=== PATIENT | male | born 1945 | race Caucasian/White ===

== ENCOUNTER 2019-12-17 17:52 | Observation (INO) | payer OTHER ==
[~2019-12-17 17:52] MED LIST: Iopamidol-370 76% 500 ML 1 ML ONE
[2019-12-17 18:24] LABS: #Eosinphils 0.2 thou/uL (0.0-0.7); #Lymphocytes 1.1 thou/uL (1.20-3.40); #Monocytes 0.5 thou/uL (0.11-0.59); #Neutrophils 3.4 thou/uL (1.40-6.50); %Basophils 0.2 % (0.0-1.0); %Eosinophils 3.4 % (0.0-10.0); %Lymphocytes 21.3 % (21.0-51.0); %Monocytes 8.9 % (0.0-10.0); %Neutrophils 66.3 % (42.0-75.0); Hemoglobin 8.7 g/dL (14.0-18.0); Mean Corpuscular HGB CONC 31.5 g/dL (32.0-36.0); Mean Corpuscular Hemoglobin 26.7 pg (27.0-31.0); Mean Corpuscular Volume 84.8 fL (78.0-98.0); Mean Platelet Volume 9.4 fL (7.4-10.4); Platelet Count 196 thou/uL (130-400); RBC Distribution Width 15.7 % (11.5-14.5); Red Blood Cell (RBC) Count 3.27 mill/uL (4.70-6.10); White Blood Cell (WBC) Count 5.1 thou/uL (4.8-10.8)
--- NOTE | 2019-12-17 18:40 | CT ---
CT OF BRAIN PERFORMED WITHOUT CONTRAST ENHANCEMENT: 12/17/19 HISTORY: Stroke-like symptoms. History of previous CVA in 2012. COMPARISON: None. Generalized ventricular and sulcal prominence. There is encephalomalacia change related to a large ol d right MCA infarct. There is no hemorrhage or mass effect. Mastoid air cells are clear. There is a r etention cyst in the left anterior ethmoid air cells near the frontal sinus. IMPRESSION: Old right MCA infarct. No acute intracranial abnormalities. Findings telephoned to Dr. Samuel at 1835 hours. POS: [facility] [place]
[2019-12-17 18:47] LABS: ALT (SGPT) 10 U/L (8-55); AST (SGOT) 10 U/L (5-34); Albumin 3.7 g/dL (3.4-4.8); Alkaline Phosphatase 137 U/L (40-110); Anion Gap 12 mmol/L (10-20); BUN (Urea Nitrogen) 16 mg/dL (8.4-25.7); Bilirubin, Total 0.6 mg/dL (0.2-1.2); Calc. Creatinine Clearance 0 mL/min (70-130); Calcium 8.6 mg/dL (7.8-10.44); Carbon Dioxide 21 mmol/L (23-31); Chloride 118 mmol/L (98-107); Estimated GFR-MDRD Greater than 90; Globulin 2.3 g/dL (2.4-3.5); Glucose 142 mg/dL (83-110); Potassium 4.1 mmol/L (3.5-5.1); Sodium 147 mmol/L (136-145)
--- NOTE | 2019-12-17 19:31 | CT ---
CT ANGIO OF HEAD AND NECK PERFORMED WITH INTRAVENOUS CONTRAST ENHANCEMENT WITH 3D RECONSTRUCTIONS: 12/17/19 HISTORY: Stroke-like symptoms, left sided weakness, history of previous right CVA. Lung apices show parenchymal scarring within the right upper lobed on axial images, it had almost a m ass-like appearance but on the coronal and sagittal views is more plate-like and appears to be relat ed to more of a chronic scarring process. There is calcified lymph nodes in this region. This is prob ably the sequela of old granulomatous disease. There is emphysematous lung changes seen. No cavitary change is noted. Thyroid nodules are identified. Better investigated with thyroid ultrasound on a nonemergent basis. T he vocal cord region is unremarkable. Parapharyngeal spaces are clear. No significant jugular chain a denopathy. Angiographic portion of this examination yielded a satisfactory study. The left common car otid artery originates from the aortic arch. There is a calcified plaque at the origin making it diff icult to assess for the degree of stenosis although appears to be some mild narrowing. There is also prominent calcified plaque within the proximal internal carotid artery on the left with approximately 50% narrowing by NASCET criteria. External carotid artery shows calcified plaque but no significant stenosis. On the right side, the right common carotid artery occludes shortly beyond its origin. There is no fl ow within the internal carotid artery There is some reconstitution of flow within some of the criminal research specialist al carotid branches. The right vertebral artery is small. It makes minimal contribution to the basilar artery. CT ANGIO OF HEAD PERFORMED WITH CONTRAST ENHANCEMENT: There is a patent [place] of [place]. The flow to the right anterior and middle cerebral arteries origi nates from the left internal carotid artery. There is moderate calcified plaque formation in the ca vernous portion of the internal carotid artery. There is patent anterior communicator. The right and left middle cerebral arteries and their branches appear to fill fairly symmetrically, particularly co nsidering the degree of encephalomalacia change related to old right MCA infarct. The basilar artery is small. Posterior cerebral arteries are unremarkable. IMPRESSION: 1. 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 There is also emphysematous l remi change. 2. Complete occlusion of the right common carotid artery shortly beyond its origin. No flow with in the right internal carotid artery. The right external carotid artery becomes reconstituted via col laterals. 3. Dominant left vertebral. 4. The intracranial circulation arises basically entirely from the left internal carotid artery. The left common carotid artery shows a mild to moderate degree of stenosis near the origin. Difficul t to assess due to calcification. There is approximately 50% narrowing of the origin of the left inte rnal carotid artery and there is some moderate calcified plaque formation of the cavernous portion of the left internal carotid. Anterior circulation derives entirely from the left sided circulation. 5. Findings telephoned to Dr. Samuel at 1858 hours. POS: [facility]
[2019-12-17] MEDS ORDERED: Aspirin Chewable 81 MG TAB ONE (20:52)
[2019-12-17 21:46] LABS: Troponin I 0.015 ng/mL (< 0.028)
[2019-12-17] MEDS ORDERED: Acetaminophen 650 MG Suppository PR PRN (22:29)
[2019-12-17] MEDS ORDERED: Acetaminophen 325 MG TAB PO PRN (22:29)
--- NOTE | 2019-12-17 23:16 | PDOC.HHP ---
Hospitalist HPI - History of Present Illness Difficulty eating History of Present Illness: Mr. Bauer is a 74 year old man brought in from longterm due to sudden difficulty eating earlier today. Unclear what time but states he suddenly noticed trouble dribbling while eating/drinking. He noticed he had slight numbness to the left side of his mouth. Patient reports noted slightly worse left sided weakness at around 9am this morning. He has residual left sided deficits following previous CVA but noted it was worse from baseline. Thinks he may have had some slight increase weakness since last night. Patient became more alarmed with his difficulty chewing and holding food in his mouth which is what brought him in. He states he knows he has complete occlusion of one of his carotid arteries with some blockage, at least 50%, on the other side. States he has been undergoing routine monitoring and that surgery has not been recommended. He was told it may be in the future if the blockage becomes severe. His symptoms have almost fully resolved, except for the residual deficits form the prior CVA. ED Course: Attempted transfer to [facility] unsuccessful. Brain CT: Old right MCA infarct. No acute intracranial abnormalities. CTA head/neck: 1. 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 There is also emphysematous lung change. 2. Complete occlusion of the right common carotid artery shortly beyond its origin. No flow with in the right internal carotid artery. The right external carotid artery becomes reconstituted via collaterals. 3. Dominant left vertebral. 4. The intracranial circulation arises basically entirely from the left internal carotid artery. The left common carotid artery shows a mild to moderate degree of stenosis near the origin. Difficult to assess due to calcification. There is approximately 50% narrowing of the origin of the left internal carotid artery and there is some moderate calcified plaque formation of the cavernous portion of the left internal carotid. Anterior circulation derives entirely from the left sided circulation. Na+ 147, Potassium 4.1, AG 12, BUN 16, Creat 0.80, GFR >90. Glucose 142, Ca+ 8.6, Protein 6, Albumin 3., Total bili 0.6. WCC 5.1, Hgb 8.7, Hematocrit 27.7, Trop normal. BNP 45.3. MCV 84.8, Platelets 196. He was given 324 mg of aspirin. Hospitalist ROS - Review of Systems Constitutional: reports: malaise. denies: fever, chills, sweats, weakness, other Eyes: reports: redness (long standing) Respiratory: denies: cough, dry, shortness of breath, hemoptysis, SOB with excertion, pleuritic pain, sputum, wheezing, other Cardiovascular: denies: chest pain, palpitations, orthopnea, paroxysmal noc. dyspnea, edema, light headedness, other Gastrointestinal: reports: diarrhea (Reports very soft stools for last few days) . denies: nausea, vomiting, abdominal pain, constipation, melena, hematochezia , other Genitourinary: denies: dysuria, frequency, incontinence, hematuria, retention, other Musculoskeletal: denies: neck pain, shoulder pain, arm pain, back pain, hand pain, leg pain, foot pain, other Skin: denies: rash, lesions, sameera, bruising, other Neurological: reports: weakness (left sided, slightly worse from baseline today , but now back to baseline), numbness (chronic involving left side from prior stroke), other (weakness/numbness to left side of mouth). denies: incoordination, change in speech, confusion, seizures Hospitalist History - Past Medical History Cardiac: reports: CAD, HTN, [place], Hyperlipidemia Pulmonary: reports: COPD, emphysema, Other (History of lung cancer) HOSPICE BEREAVEMENT COORDINATOR: reports: Other (Parkinson's) Gastrointestinal: reports: Irritable bowel disease Heme/Onc: reports: Anemia NOS, Cancer (history of lung cancer, basal cell carcinoma) Endocrine: reports: Diabetes Dermatology: reports: Basal cell - Past Surgical History Past Surgical History: reports: Other (Left upper lobectomy) - Social History Smoking Status: Former smoker Alcohol: reports: None Drugs: reports: none Living Situation: Other (inmate) - Exam General Appearance: NAD General - other findings: Appears frail, thin Eye: PERRL ENT: normocephalic atraumatic, no oropharyngeal lesions, dry oral mucosa Neck: supple, no lymphadenopathy Heart: RRR Respiratory: CTAB, normal chest expansion, no tachypnea Respiratory - other findings: decreased breath sounds at bases Gastrointestinal: soft, non-tender, non-distended, no guarding, no rigidity Extremities: no edema Neurological - other findings: left sided numbness Musculoskeletal: normal tone, no muscle wasting Psychiatric: normal affect, normal behavior, A&O x 3 Hospitalist Results - Labs Result Diagrams: 12/17/19 18:15 12/17/19 18:15 Lab results: WBC 5.1 thou/uL (4.8-10.8) 12/17/19 18:15 Hgb 8.7 g/dL (14.0-18.0) L 12/17/19 18:15 Hct 27.7 % (42.0-52.0) L 12/17/19 18:15 MCV 84.8 fL (78.0-98.0) 12/17/19 18:15 Plt Count 196 thou/uL (130-400) 12/17/19 18:15 Neutrophils % 66.3 % (42.0-75.0) 12/17/19 18:15 Sodium 147 mmol/L (136-145) H 12/17/19 18:15 Potassium 4.1 mmol/L (3.5-5.1) 12/17/19 18:15 Chloride 118 mmol/L (98-107) H 12/17/19 18:15 Carbon Dioxide 21 mmol/L (23-31) L 12/17/19 18:15 BUN 16 mg/dL (8.4-25.7) 12/17/19 18:15 Creatinine 0.80 mg/dL (0.7-1.3) 12/17/19 18:15 Glucose 142 mg/dL (83-110) H 12/17/19 18:15 Calcium 8.6 mg/dL (7.8-10.44) 12/17/19 18:15 Total Bilirubin 0.6 mg/dL (0.2-1.2) 12/17/19 18:15 AST 10 U/L (5-34) 12/17/19 18:15 ALT 10 U/L (8-55) 12/17/19 18:15 Alkaline Phosphatase 137 U/L (40-110) H 12/17/19 18:15 Troponin I 0.015 ng/mL (< 0.028) 12/17/19 21:15 B-Natriuretic Peptide 45.3 pg/mL (0-100) 12/17/19 18:15 Serum Total Protein 6.0 g/dL (5.8-8.1) 12/17/19 18:15 Albumin 3.7 g/dL (3.4-4.8) 12/17/19 18:15 Hospitalist H&P A/P - Problem (1) TIA (transient ischemic attack) Code(s): G45.9 - TRANSIENT CEREBRAL ISCHEMIC ATTACK, UNSPECIFIED Status: Acute (2) History of CVA (cerebrovascular accident) Code(s): Z86.73 - PRSNL HX OF TIA (TIA), AND CEREB INFRC W/O RESID DEFICITS Status: Acute (3) Right carotid artery occlusion Code(s): I65.21 - OCCLUSION AND STENOSIS OF RIGHT CAROTID ARTERY Status: Chronic (4) Left carotid artery stenosis Code(s): I65.22 - OCCLUSION AND STENOSIS OF LEFT CAROTID ARTERY Status: Chronic (5) COPD (chronic obstructive pulmonary disease) Status: Chronic (6) Hypertension Code(s): I10 - ESSENTIAL (PRIMARY) HYPERTENSION Status: Chronic (7) Diabetes mellitus Code(s): E11.9 - TYPE 2 DIABETES MELLITUS WITHOUT COMPLICATIONS Status: Chronic (8) History of lung cancer Code(s): Z85.118 - PERSONAL HISTORY OF MALIGNANT NEOPLASM OF BRONCHUS AND LUNG Status: Chronic (9) Seizure disorder Code(s): G40.909 - EPILEPSY, UNSP, NOT INTRACTABLE, WITHOUT STATUS EPILEPTICUS Status: Chronic (10) Parkinson disease Code(s): G20 - PARKINSON'S DISEASE Status: Chronic - Plan Plan: Cardiac monitoring. Neuro consult. Echo, unsure when it was last done. MRI brain. Consider vascular surgery, though patient would benefit from transfer to [facility] given all his care has been done there. Check keppra level. Monitor glucose, ISS Monitor BP. Duo nebs prn. Speech eval given risk for aspiration. PT/OT. DVT prophylaxis with mechanical SCDs. GI Prophylaxis with Famotidine. CODE STATUS: FULL
[2019-12-17] MEDS ORDERED: Dextrose 50% Abboject 50 ML SYRINGE SLOW IVP PRN (23:53)
[2019-12-17] MEDS ORDERED: Dextrose 5% in Water 1,000 ML IV PRN (23:53)
[2019-12-18] MEDS ORDERED: PROVENTIL INHALER 6.7 G (200 INHALATIONS) INH PRN (01:47)
[2019-12-18] MEDS ORDERED: Carbidopa/Levodopa 25-250 mg Tablet PO SCH (02:00)
[2019-12-18] MEDS ORDERED: Carvedilol 3.125 MG TAB PO SCH (02:00)
[2019-12-18] MEDS ORDERED: Amantadine HCl 100 mg Capsule PO SCH (02:00)
[2019-12-18 03:43] VITALS: BMI 19.9
[2019-12-18 05:22] LABS: #Eosinphils 0.2 thou/uL (0.0-0.7); #Lymphocytes 1.3 thou/uL (1.20-3.40); #Monocytes 0.4 thou/uL (0.11-0.59); #Neutrophils 2.5 thou/uL (1.40-6.50); %Basophils 0.8 % (0.0-1.0); %Eosinophils 4.8 % (0.0-10.0); %Lymphocytes 29.5 % (21.0-51.0); %Monocytes 8.9 % (0.0-10.0); %Neutrophils 55.9 % (42.0-75.0); Hemoglobin 8.1 g/dL (14.0-18.0); Mean Corpuscular HGB CONC 30.5 g/dL (32.0-36.0); Mean Corpuscular Hemoglobin 25.7 pg (27.0-31.0); Mean Corpuscular Volume 84.3 fL (78.0-98.0); Mean Platelet Volume 9.5 fL (7.4-10.4); Platelet Count 191 thou/uL (130-400); RBC Distribution Width 15.7 % (11.5-14.5); Red Blood Cell (RBC) Count 3.14 mill/uL (4.70-6.10); White Blood Cell (WBC) Count 4.4 thou/uL (4.8-10.8)
[2019-12-18 05:29] LABS: Hemoglobin A1c 5.5 % (4.0-6.0)
[2019-12-18 05:46] LABS: Anion Gap 9 mmol/L (10-20); BUN (Urea Nitrogen) 15 mg/dL (8.4-25.7); Calc. Creatinine Clearance 69 mL/min (70-130); Calcium 8.2 mg/dL (7.8-10.44); Carbon Dioxide 23 mmol/L (23-31); Chloride 118 mmol/L (98-107); Estimated GFR-MDRD Greater than 90; Glucose 96 mg/dL (83-110); Potassium 3.7 mmol/L (3.5-5.1); Sodium 146 mmol/L (136-145)
[2019-12-18] MEDS: Ipratropium Bromide 2.5 ml Neb NEB SCH ×3 (06:56→18:26)
[2019-12-18] MEDS: Mometasone 100 MCG HFA INHALER INH SCH ×2 (06:57→18:30)
[2019-12-18] MEDS ORDERED: TIOTROPIUM INH SCH (09:00)
[2019-12-18] MEDS ORDERED: Non-Formulary Item 1 EACH (Omeprazole [Omeprazole] 20 MG) PO SCH (09:00)
[2019-12-18] MEDS ORDERED: Cyanocobalamin 1000 MCG/ML VIAL IM SCH (09:00)
[2019-12-18] MEDS ORDERED: Aspirin 81 mg Enteric Coated Tablet PO SCH (09:00)
[2019-12-18] MEDS: Famotidine/PF 20 mg/2ml Vial SLOW IVP SCH (09:07)
[2019-12-18] MEDS: Clopidogrel Bisulfate 75 MG TAB PO SCH (09:08)
[2019-12-18] MEDS: Furosemide 20 MG TAB PO SCH (09:08)
[2019-12-18] MEDS: Ferrous Sulfate 325 MG TAB PO SCH ×3 (09:08→21:56)
[2019-12-18] MEDS: Amantadine HCl 100 mg Capsule PO SCH ×2 (09:08→21:56)
[2019-12-18] MEDS: levETIRAcetam 500 MG TAB PO SCH (09:08)
[2019-12-18] MEDS: Docusate 100 MG CAP PO SCH ×2 (09:08→21:56)
[2019-12-18] MEDS: Carbidopa/Levodopa 25-250 mg Tablet PO SCH ×3 (09:08→21:56)
[2019-12-18] MEDS: Terazosin HCl 5 MG CAP PO SCH (09:08)
[2019-12-18] MEDS: Carvedilol 3.125 MG TAB PO SCH ×2 (09:09→21:56)
[2019-12-18] MEDS: Lisinopril 20 MG TAB PO SCH (09:09)
[2019-12-18] MEDS ORDERED: Acetaminophen 650 MG Suppository PR PRN (09:26)
[2019-12-18] MEDS ORDERED: Acetaminophen 325 MG TAB PO PRN (09:26)
[2019-12-18] MEDS ORDERED: Dextrose 5% in Water 1,000 ML IV PRN ×2 (09:27→16:04)
[2019-12-18] MEDS ORDERED: Dextrose 50% Abboject 50 ML SYRINGE SLOW IVP PRN ×2 (09:28→16:04)
[2019-12-18] MEDS: Aspirin 81 mg Enteric Coated Tablet PO SCH (11:28)
[2019-12-18] MEDS ORDERED: Artificial Tears 18 DROP/0.9 ML EA EYE PRN (14:23)
--- NOTE | 2019-12-18 14:29 | PDOC.HOSPP ---
- Subjective Subjective: Follow up on CVA symptoms. Residual left-sided deficits a baseline. Subjective worsening of deficits and difficulty evening. I find the patient sitting upright , breathing well on room air. He is currently eating without difficulties. I do not appreciate significant left-sided deficits. Patient with known carotid stenosis who has been recommended to high risk for surgical intervention in the past. Neurology consultation requested. - Objective Vital Signs & Weight: Vital Signs (12 hours) Temp Pulse Resp BP BP Pulse Ox 12/18/19 13:40 64 16 12/18/19 11:19 97.7 F 64 16 127/48 L 96 12/18/19 09:09 150/74 H 12/18/19 07:33 97.5 F L 63 18 155/61 H 98 12/18/19 06:57 69 12 12/18/19 06:56 69 12 12/18/19 03:55 98 F 69 16 158/54 H 98 Weight Weight 130 lb 14.4 oz I&O: 12/17/19 12/18/19 12/19/19 06:59 06:59 06:59 Intake Total 650 395 Balance 650 395 Result Diagrams: 12/18/19 04:43 12/18/19 04:43 Additional Labs: Accuchecks 12/18/19 12/18/19 12/17/19 11:21 06:14 18:05 POC Glucose 228 H 110 130 H Radiology Reviewed by me: Yes Hospitalist ROS - Review of Systems All other systems reviewed; all pertinent +/- noted in HPI/Subj - Medication Medications: Active Medications Generic Name Dose Route Start Last Admin Trade Name Freq PRN Reason Stop Dose Admin Amantadine HCl 100 mg 12/18/19 09:00 12/18/19 09:08 Symmetrel PO 100 mg BID RENATA Administration Aspirin 81 mg 12/18/19 09:00 12/18/19 11:28 Ecotrin PO 81 mg DAILY RENATA Administration Carbidopa/Levodopa 1 tab 12/18/19 09:00 12/18/19 09:08 Sinemet 25-250 PO 1 tab TID RENATA Administration Carvedilol 3.125 mg 12/18/19 09:00 12/18/19 09:09 Coreg PO 3.125 mg BID RENATA Administration Clopidogrel Bisulfate 75 mg 12/18/19 09:00 12/18/19 09:08 Plavix PO 75 mg DAILY RENATA Administration Docusate Sodium 100 mg 12/18/19 09:00 12/18/19 09:08 Colace PO 100 mg BID RENATA Administration Famotidine 20 mg 12/18/19 09:00 12/18/19 09:07 Pepcid SLOW IVP 20 mg Q12HR RENATA Administration Ferrous Sulfate 325 mg 12/18/19 09:00 12/18/19 09:08 Feosol PO 325 mg TID RENATA Administration Furosemide 20 mg 12/18/19 09:00 12/18/19 09:08 Lasix PO 20 mg DAILY RENATA Administration Ipratropium [place] 2.5 ml 12/18/19 06:00 12/18/19 13:40 Atrovent NEB 2.5 ml Q6HR RENATA Administration Levetiracetam 500 mg 12/18/19 09:00 12/18/19 09:08 Keppra PO 500 mg DAILY RENATA Administration Lisinopril 20 mg 12/18/19 09:00 12/18/19 09:09 Zestril PO 20 mg DAILY RENATA Administration Mometasone Furoate 1 puff 12/18/19 06:30 12/18/19 06:57 Asmanex Hfa 100 Mcg INH 1 puff BID-RT RENATA Administration Pantoprazole Sodium 40 mg 12/18/19 09:00 12/18/19 09:08 Protonix PO 40 mg DAILY RENATA Administration Terazosin HCl 5 mg 12/18/19 09:00 12/18/19 09:08 Hytrin PO 5 mg DAILY RENATA Administration - Exam General Appearance: NAD, awake alert Eye: anicteric sclera ENT: normocephalic atraumatic, moist mucosa Neck: supple, symmetric, no lymphadenopathy Heart: no murmur, no gallops, no rubs Respiratory: CTAB, no wheezes, no rales, no ronchi Gastrointestinal: soft, non-tender, non-distended, normal bowel sounds Extremities: no cyanosis, no edema Skin: no rashes Neurological: cranial nerve grossly intact, no focal deficits Musculoskeletal: generalized weakness Psychiatric: A&O x 3 Hosp A/P (1) History of CVA (cerebrovascular accident) Code(s): Z86.73 - PRSNL HX OF TIA (TIA), AND CEREB INFRC W/O RESID DEFICITS Status: Acute (2) TIA (transient ischemic attack) Code(s): G45.9 - TRANSIENT CEREBRAL ISCHEMIC ATTACK, UNSPECIFIED Status: Acute (3) COPD (chronic obstructive pulmonary disease) Status: Chronic (4) Diabetes mellitus Code(s): E11.9 - TYPE 2 DIABETES MELLITUS WITHOUT COMPLICATIONS Status: Chronic (5) History of lung cancer Code(s): Z85.118 - PERSONAL HISTORY OF MALIGNANT NEOPLASM OF BRONCHUS AND LUNG Status: Chronic (6) Hypertension Code(s): I10 - ESSENTIAL (PRIMARY) HYPERTENSION Status: Chronic (7) Left carotid artery stenosis Code(s): I65.22 - OCCLUSION AND STENOSIS OF LEFT CAROTID ARTERY Status: Chronic (8) Parkinson disease Code(s): G20 - PARKINSON'S DISEASE Status: Chronic (9) Right carotid artery occlusion Code(s): I65.21 - OCCLUSION AND STENOSIS OF RIGHT CAROTID ARTERY Status: Chronic (10) Seizure disorder Code(s): G40.909 - EPILEPSY, UNSP, NOT INTRACTABLE, WITHOUT STATUS EPILEPTICUS Status: Chronic - Plan Plan: medical unit telemetry - stroke unit neurology consultation, recommendations appreciated MRI brain CTA head and neck echocardiogram blood pressure control metabolic workup has been benign continue other home medications is able physical therapy consultation, evaluation and treatment occupational Therapy consultation, evaluation treatment speech therapy consultation, evaluation and treatment G.I. prophylaxis DVT prophylaxis
[2019-12-18] MEDS ORDERED: HumaLOG 300 UNITS/3 ML VIAL SC PRN ×2 (16:04)
--- NOTE | 2019-12-18 16:40 | MRI ---
EXAM: MRI Brain WO Con PROVIDED CLINICAL HISTORY: TIA. Patient states he feels the same as when he had a previous stroke. COMPARISON: Noncontrast CT head on 12/17/2019 FINDINGS: There is an area of encephalomalacia and gliosis involving the right posterior temporal and frontopar ietal lobes with associated gliosis. Increased FLAIR and T2-weighted signal intensity is seen in the periventricular and subcortical white matter which is nonspecific but likely reflective of modera te chronic small vessel ischemic changes. There is no evidence of restricted diffusion to suggest an acute infarction. The septum pellucidum and third ventricle are in the midline. Ventricular system is normal in size, s hape, and position. Mild cerebral volume loss is present. There is increased T2-weighted signal intensity seen within the right internal carotid artery compati ble with occlusion noted on recent CTA examination. The right vertebral artery flow-void is very small in caliber, this is also noted on recent CTA exam. Minimal scattered mucosal thickening is seen in the bilateral ethmoidal air cells, left frontal sinus , and each sphenoid sinus. The orbits and remainder of the skull base have a normal MRI appearance. IMPRESSION: 1. No acute intracranial abnormalities demonstrated. 2. Encephalomalacia and gliosis in the right cerebral hemisphere in the distribution of the right mid dle cerebral artery likely attributable to remote area of infarction. 3. Chronic small vessel ischemic changes and cerebral volume loss. 4. Occlusion of the right internal carotid artery. 3. Scattered mild sinus disease.
[2019-12-18] MEDS ORDERED: Atorvastatin Calcium 40 MG TAB PO SCH ×2 (21:00)
--- NOTE | 2019-12-18 21:12 | CON ---
DATE OF CONSULTATION: 12/18/2019 CHIEF COMPLAINT: Left-sided weakness. HISTORY OF PRESENT ILLNESS: The patient is a 74-year-old man with Parkinson disease since 2011. He had hemorrhagic CVA in 2012 with residual left-sided weakness. He developed numbness on the left side along with worsening of the weakness. He could not chew food on the left side and he has had seizures for several number of years. He has been on Keppra for 8 years. Last seizure was 4 years ago. The patient developed left-sided weakness and numbness, which worsened, and therefore, he was brought to the hospital. At this time, he is being going through his workup. SOCIAL HISTORY: He is a former smoker. Does not drink alcohol. No drug use. He is an inmate at the [facility]. FAMILY HISTORY: His grandmothers of both sides had few strokes. He has 2 children. His daughter is 48 and son is 50, and they do not live nearby. His parents did not have strokes. PAST MEDICAL HISTORY: Positive for; 1. Coronary artery disease. 2. Hypertension. 3. [place]. 4. Hyperlipidemia. 5. COPD. 6. Emphysema. 7. Parkinson disease. 8. Irritable bowel syndrome. 9. History of lung cancer, basal cell carcinoma. 10. Diabetes. 11. Hemorrhagic CVA in the past. 12. Seizure disorder. PAST SURGICAL HISTORY: Left upper lobectomy for lung cancer. REVIEW OF SYSTEMS: PULMONARY: Negative for shortness of breath or cough. GI: Negative for nausea, vomiting, or diarrhea. NEUROLOGICAL: Positive for left-sided weakness and numbness. DERMATOLOGIC: Negative for rash. ENT: Negative for any throat problems or ear problems. OPHTHALMOLOGIC: Negative for vision issues. GENITOURINARY: Negative for urinary infection. LABORATORY DATA: His current laboratory workup; white count 4.4, hemoglobin 8.1, hematocrit 26.5, platelet count 191. Chemistry; sodium 146, potassium 3.7, chloride 118, bicarb 23, BUN 15, creatinine 0.76, glucose 96. Hemoglobin A1c 5.5. Levetiracetam 7.8. IMAGING DATA: His brain MRI was completed. MRI of the brain showed no acute intracranial abnormalities. He has encephalomalacia and gliosis of right cerebral hemisphere in the distribution of right MCA artery, likely due to old infarct, and he has chronic small vessel ischemic changes. PHYSICAL EXAMINATION: VITAL SIGNS: Temperature 97.5, pulse 66, blood pressure 136/58, respiratory rate 16, O2 sats 97%. GENERAL APPEARANCE: Thin-built man, who seems to be having difficulty with his speech, mostly hypophonia. CHEST: Clear vesicular breathing. CARDIOVASCULAR: S1, S2 heard. No murmurs. ABDOMEN: Soft. NEUROLOGICAL: Higher intellectual functions normal. Orientation to time, place, and person. Appropriate conversation. Cranial nerves 2 through 12, normal extraocular movements. Decreased sensation of left side of the face. Normal hearing. Pupils are 2 mm, reactive to light. Normal elevation of palate. Tongue midline, and he did have mild left facial asymmetry. Motor examination; bulk normal, tone normal, and strength was 5/5 on the right side, and in the left upper extremity, his strength was 5/5. Left lower extremity strength was 4/5. Muscle groups tested in iliopsoas, hamstrings, quadriceps, ankle dorsiflexion, plantar flexion, deltoid, biceps, triceps, wrist extension and flexion, finger extension and flexion. Sensory examination diminished in the left arm and leg and face. Cerebellar; normal [id number], [id number]. IMPRESSION AND PLAN: The patient is a 74-year-old man with a prior right middle cerebral artery stroke hemorrhagic stroke per the patient in 2011. He also has seizure disorder plus Parkinson disease. He comes in with left-sided numbness and worsening of weakness. At this time, his MRI does not show an acute infarct. He does have carotid artery disease as reported and noted in the CT angiography report, which I reviewed as well. On the CTA, he has old changes, complete occlusion of the right common carotid artery and right ICA, and right ECA becomes reconstituted via collaterals. He does have 50% narrowing of the origin of left ICA and moderate plaque in the cavernous portion of the internal carotid artery as well. His current examination shows left-sided numbness and weakness, which was mild. This is likely secondary to other metabolic factors such as hypernatremia and anemia plus hyperglycemia, all of which can make his pre-existing weakness worsen. He reports that his carotid artery disease has been monitored for a long time. At this time, the pending investigation is echocardiogram. For stroke prophylaxis, please make sure that the patient is on aspirin plus statin and he can follow up with his neurologist. Job ID: [id number]
[2019-12-19] MEDS: Famotidine/PF 20 mg/2ml Vial SLOW IVP SCH ×2 (00:08→09:24)
[2019-12-19] MEDS: Ipratropium Bromide 2.5 ml Neb NEB SCH ×3 (00:18→13:55)
[2019-12-19] MEDS: Mometasone 100 MCG HFA INHALER INH SCH (06:27)
[2019-12-19] MEDS: levETIRAcetam 500 MG TAB PO SCH (09:23)
[2019-12-19] MEDS: Aspirin 81 mg Enteric Coated Tablet PO SCH (09:23)
[2019-12-19] MEDS: Amantadine HCl 100 mg Capsule PO SCH (09:23)
[2019-12-19] MEDS: Docusate 100 MG CAP PO SCH (09:23)
[2019-12-19] MEDS: Clopidogrel Bisulfate 75 MG TAB PO SCH (09:23)
[2019-12-19] MEDS: Terazosin HCl 5 MG CAP PO SCH (09:23)
[2019-12-19] MEDS: Furosemide 20 MG TAB PO SCH (09:23)
[2019-12-19] MEDS: Carbidopa/Levodopa 25-250 mg Tablet PO SCH ×2 (09:24→14:32)
[2019-12-19] MEDS: Carvedilol 3.125 MG TAB PO SCH (09:24)
[2019-12-19] MEDS: Lisinopril 20 MG TAB PO SCH (09:24)
[2019-12-19] MEDS: Ferrous Sulfate 325 MG TAB PO SCH ×2 (09:27→14:38)
[2019-12-19 15:48] VITALS: BP 131/51; TEMP 98.2
--- NOTE | 2019-12-20 00:57 | DIS ---
DATE OF ADMISSION: 12/17/2019 DATE OF DISCHARGE: 12/19/2019 REASON FOR HOSPITALIZATION: Subjective worsening of baseline left-sided deficits and concern for acute stroke. SIGNIFICANT FINDINGS: The patient had a full and thorough workup for acute CVA, which was all found to be negative for acute abnormalities. PROCEDURES PERFORMED AND TREATMENTS RENDERED: The patient was admitted to the medical unit with telemetry on 12/17/2019 in stable condition. The patient had appropriate CT scan and CT angiography of the head and neck. Please see full radiographic reports for details. There were chronic changes including carotid artery stenosis, which is known to him at baseline. The patient went for MRI of the brain, please see full report for details, there was no acute intracranial pathology and no acute stroke was identified. Neurology evaluating the patient and recommending the patient was safe for discharge with close followup in the outpatient setting. The patient with known carotid stenosis, who has been determined not to be a surgical candidate in the past. We will follow up with his primary care physician and outpatient neurologist for these findings in the future. I agree that this elderly gentleman would likely have a poor outcome from carotid endarterectomy. The patient's metabolic workup was otherwise benign. CONDITION ON DISCHARGE: Stable. SPECIFIC INSTRUCTIONS FOR THE PATIENT/FAMILY: 1. The patient recommended safe for discharge with close followup with primary care physician in the next 5 to 7 days. 2. The patient recommended to follow up with Neurology in the next 1 to 2 weeks. 3. The patient recommended to take all medications as directed including stroke regimen as prescribed. 4. The patient recommended to return to acute care hospital immediately if signs or symptoms return, worsen, or any other new symptoms occur. DISCHARGE MEDICATIONS: Please see full discharge medication list for details. 1. Terazosin 5 mg 1 tablet p.o. daily. 2. Protonix 40 mg 1 tablet p.o. daily. 3. Albuterol HFA inhaler q.4 hours p.r.n. shortness of breath. 4. Amantadine 100 mg 1 tablet p.o. b.i.d. 5. Aspirin 81 mg 1 tablet p.o. daily. 6. Atorvastatin 80 mg 1 tablet p.o. daily. 7. Carbidopa/levodopa 25/250 mg 1 tablet p.o. t.i.d. 8. Carvedilol 3.125 mg 1 tablet p.o. b.i.d. 9. Plavix 75 mg 1 tablet p.o. daily. 10. Vitamin B12 at 1000 mcg intramuscular injection weekly. 11. Docusate 100 mg 1 tablet p.o. b.i.d. 12. Ferrous sulfate 325 mg 1 tablet p.o. t.i.d. 13. Flovent HFA 110 mcg 1 puff p.o. b.i.d. 14. Lasix 20 mg 1 tablet p.o. daily. 15. Keppra 500 mg 1 tablet p.o. daily. 16. Lisinopril 20 mg 1 tablet p.o. daily. 17. Tiotropium 18 mcg 1 capsule inhalation p.o. daily. 18. Artificial Tears 2 drops each eye q.1 hour as needed for dry/irritated eyes. Greater than 33 minutes spent coordinating care and discharge process for this patient. Job ID: [id number]
== END 2019-12-19 17:25 ==
LOC: ERS 17:52 → 2SE 21:04 → ERS 23:47
PROVIDERS: ADMIT Internal Medicine; ATTEND Internal Medicine
DX: R63.3 Feeding difficulties (principal); I69.154 Hemiplegia and hemiparesis following nontraumatic intracerebral hemorrhage affecting left non-dominant side; I65.23 Occlusion and stenosis of bilateral carotid arteries; I25.10 Atherosclerotic heart disease of native coronary artery without angina pectoris; I10 Essential (primary) hypertension; I25.2 Old myocardial infarction; E78.5 Hyperlipidemia, unspecified; J43.9 Emphysema, unspecified; G20 Parkinson's disease; E11.9 Type 2 diabetes mellitus without complications; G40.909 Epilepsy, unspecified, not intractable, without status epilepticus; J32.9 Chronic sinusitis, unspecified; Z87.891 Personal history of nicotine dependence; Z79.02 Long term (current) use of antithrombotics/antiplatelets; Z79.51 Long term (current) use of inhaled steroids; Z79.82 Long term (current) use of aspirin; Z79.899 Other long term (current) drug therapy; Z88.1 Allergy status to other antibiotic agents; Z90.2 Acquired absence of lung [part of]
CPT/HCPCS: 36415; 36416; 70450; 70496; 70498; 70551; 80048; 80053; 80177; 83036; 83880; 84484; 85025; 93005; 94640; 94664; 96374; G0378; Q9967; S0028